=== PATIENT | female | born 1970 ===

== ENCOUNTER 2018-09-28 08:39 | Inpatient (IN) | payer BC ==
[2018-09-25 17:26] VITALS: BMI 24.7
[2018-09-28] MEDS ORDERED: MIDAZOLAM HCL 2 MG/2 ML SINGLE DOSE VIAL ONE (10:37)
[2018-09-28] MEDS ORDERED: PROPOFOL 20 ML ONE ×10 (10:37)
[2018-09-28] MEDS ORDERED: fentaNYL CITRATE 250 MCG/5 ML VIAL ONE (10:38)
[2018-09-28] MEDS ORDERED: SUCCINYLCHOLINE CHLORIDE 200 MG/10 ML VIAL ONE (10:41)
[2018-09-28] MEDS ORDERED: DEXAMETHASONE SOD PHOSPHATE 4 MG/1 ML VIAL ONE ×2 (10:42→12:43)
[2018-09-28] MEDS ORDERED: LIDOCAINE HCL/PF 2% SDV 5ML VIAL ONE (10:42)
[2018-09-28] MEDS ORDERED: ceFAZolin SODIUM 1 GM VIAL ONE ×2 (10:42)
[2018-09-28] MEDS ORDERED: DESFLURANE GAS 240 ML BOTTLE IH ONE (10:50)
[2018-09-28] MEDS ORDERED: ACETAMINOPHEN INJECTION 100 ML IVPB ONE (10:51)
[2018-09-28] MEDS ORDERED: HEPARIN NA (PORCINE) 5,000 UNITS/ML 1ML VIAL ONE (11:11)
[2018-09-28] MEDS ORDERED: SCOPOLAMINE HYDROBROMIDE 1 PATCH PATCH.TD72 ONE (11:22)
[2018-09-28] MEDS ORDERED: THROMBIN (BOVINE) 5,000 UNIT VIAL TP ONE ×2 (11:22→13:42)
[2018-09-28] MEDS ORDERED: ceFAZolin SODIUM 1 GM VIAL IVPB ONE (12:11)
[2018-09-28] MEDS ORDERED: VANCOMYCIN 1,000 MG VIAL (RESTRICTED TO ID ONLY) IVPB ONE (12:19)
[2018-09-28] MEDS ORDERED: HYDROmorphone HCl 2 MG/ML VIAL ONE (13:00)
--- NOTE | 2018-09-28 15:28 | PN ---
Progress Note (short form) - Note Progress Note: 48F s/p C4-C5 discectomies; C4, C5 partial corpectomies; C4-C5 anterior cervical decompression and instrumented fusion POD #0. -Admit to ICU x 24 hrs. for airway observation; OK to discharge home or downgrade to floor 09/29/2018 if airway stable. -Maintain head of bed 45-60 degrees. -Pain medication: per anaesthesia team; no HEEL DIPPER; NO NSAID's. -DVT PPx: -Mechanical only: MEGAN's, SCD's. -Post-op Ancef x 2 doses. -f/u AM labs. -Incentive spirometry. -PT/OT/Rehab, OOB. -WBAT B/L UE & LE. -d/c Rosenbaum catheter at midnight; f/u TOV (8 hours max). -Keep dressing clean & dry. -No heavy lifting, bending or twisting. -Advance diet as tolerated. -B/L UE & LE NV checks. -Care per ICU & primary medical hospitalist teams. -Discharge planning: f/u [facility] [place] office Friday10/09/2018; call for appointment; . Rolan Yap MD (Orthopaedic Surgery).
--- NOTE | 2018-09-28 15:33 | OP ---
Operative Note - Note: Operative Date: 09/28/18 Pre-Operative Diagnosis: 1. C4-C5 intervertebral disc disorder with associated: a. Myelopathy. b. Radiculopathy. 2. Cervical spinal stenosis with neurogenic claudication. 3. Kyphosis. 4. Segmental instability. 5. Disc- osteophyte complex C4-C5 Operation: 1. C4-C5 discectomy. 2. C4, C5 partial corpectomies. 3. C4-C5 anterior arthrodesis. 4. Insertion biomechanical device C4-C5. 5. C4-C5 anterior instrumentation. 6. Bone autograft. 7. Bone allograft. 8. Intra- operative fluoroscopy. 9. Intra-operative neural monitoring Post-Operative Diagnosis: Same as Pre-op Surgeon: Rolan Yap Rayon Tester: Ulises Yap Anesthesiologist/PURIFICATION OPERATOR HELPER: Jesse Warner Anesthesia: General Specimens Removed: C4-C5 disc Estimated Blood Loss (mls): 100 Fluid Volume Replaced (mls): 2,100 (Crystalloid) Operative Report Dictated: Yes
[2018-09-28] MEDS ORDERED: traMADol HCL 50 MG TABLET PO PRN (15:37)
[2018-09-28] MEDS ORDERED: oxyCODONE HCL 5 MG TABLET PO PRN (15:37)
[2018-09-28] MEDS ORDERED: ONDANSETRON 4 MG/2 ML VIAL IVPUSH PRN (15:37)
[2018-09-28] MEDS ORDERED: LACTATED RINGERS SOLUTION 1,000 ML IV SCH (15:45)
--- NOTE | 2018-09-28 16:11 | CONSULT ---
Consultation: REQUESTING PROVIDER: CONSULT REQUEST: We have been asked to medically evaluate this patient post- operatively HISTORY OF PRESENT ILLNESS: The patient is a 48F who presented for scheduled surgery. The patient is now s/ p C4-C5 discectomy, C4, C5 partial corpectomies, C4-C5 anterior arthrodesis, insertion of biomechanical device C4-C5, C4-C5 anterior instrumentation, bone autograft, bone allograft, and intra-operative fluoroscopy by Dr. Yap. REVIEW OF SYSTEMS: GENERAL/CONSTITUTIONAL: No fever or chills HEAD, EYES, EARS, NOSE AND THROAT: No change in vision. No ear pain or discharge CARDIOVASCULAR: No chest pain or shortness of breath RESPIRATORY: Denies cough, hemoptysis GASTROINTESTINAL: No nausea, vomiting GENITOURINARY: No dysuria, frequency, or change in urination MUSCULOSKELETAL: No joint or muscle swelling or pain SKIN: No rash NEUROLOGIC: No headache, vertigo, or acute change in strength/sensation ENDOCRINE: No increased thirst. No abnormal weight change HEMATOLOGIC/LYMPHATIC: No anemia, easy bleeding, or history of blood clots ALLERGIC/IMMUNOLOGIC: No hives or skin allergy PHYSICAL EXAMINATION Vital Signs - 24 hr 09/28/18 09/28/18 09:06 09:07 Temperature 98.6 F Pulse Rate 106 H Respiratory 18 Rate Blood Pressure 124/87 O2 Sat by Pulse 100 Oximetry (%) GENERAL: Awake, alert, and fully oriented, in no acute distress. HEAD: Normal with no signs of trauma. EYES: Pupils equal, round and reactive to light, extraocular movements intact, sclera anicteric, conjunctiva clear. EARS, NOSE, THROAT: Ears normal, nares patent, oropharynx clear without exudates. Moist mucous membranes. NECK: Surgical dressing in place LUNGS: Breath sounds equal, clear to auscultation bilaterally. No wheezes, and no crackles. No accessory muscle use. HEART: Regular rate and rhythm, normal S1 and S2 without murmur, rub or gallop. ABDOMEN: Soft, nontender, not distended, normoactive bowel sounds, no guarding, no rebound, no masses. No hepatomegaly or splenomegaly. MUSCULOSKELETAL: Normal range of motion at all joints. No bony deformities or tenderness. No CVA tenderness. UPPER EXTREMITIES: 2+ pulses, warm, well-perfused. No cyanosis. No clubbing. Cap refill <2 seconds. No peripheral edema. LOWER EXTREMITIES: 2+ pulses, warm, well-perfused. No peripheral edema. NEUROLOGICAL: Cranial nerves II-XII intact. Patient with decreased sensation to light touch on RUE/RLE which patient reports was presents before surgery. Strength 5/5 BUE/BLE Laboratory Results - last 24 hr 09/28/18 09/28/18 09/28/18 08:54 08:54 10:30 Serum , Qual Negative Blood Type O POSITIVE O POSITIVE Antibody Screen Negative Active Medications Generic Name Dose Route Start Last Admin Trade Name Freq PRN Reason Stop Dose Admin Acetaminophen 650 mg 09/28/18 15:45 Tylenol - PO Q6H KUMAR Lactated Ringer's 1,000 mls @ 100 mls/hr 09/28/18 15:45 Lactated Ringers Solution IV ASDIR KUMAR Ondansetron HCl 4 mg 09/28/18 15:37 Zofran Injection IVPUSH Q6H PRN NAUSEA AND/OR VOMITING Oxycodone HCl 5 mg 09/28/18 15:37 Roxicodone - PO Q4H PRN PAIN LEVEL 6-10 Oxycodone HCl 10 mg 09/28/18 15:37 Roxicodone - PO Q4H PRN PAIN LEVEL 7 - 10 Tramadol HCl 50 mg 09/28/18 15:37 Ultram - PO Q6H PRN PAIN LEVEL 1-5 ASSESSMENT/PLAN: The patient is a 48F s/p C4-C5 discectomies; C4, C5 partial corpectomies; C4-C5 anterior cervical decompression and instrumented fusion on 09/28/2018. S/p OR Per Surgery, admit to ICU x 24 hrs. for airway observation -Plan for discharge home or downgrade to floor 09/29/2018 if airway stable -Will maintain head of bed 45-60 degrees. -Keep dressing clean & dry -B/L UE & LE NV checks Neuro Acute post-operative pain -Per anaesthesia team; however per surgery no ELEVATORS INSPECTOR or NSAID's. Pulm IS GI Diet -Advance as tolerated -D/C jackson at midnight and void trial Heme DVT PPx: -Mechanical only: MEGAN's, SCD's. ID -Post-op Ancef x 2 doses. MSK -PT/OT/Rehab -WBAT B/L UE & LE. -No heavy lifting, bending or twisting Dispo -We will continue to follow the patient. Thank you for this consultative opportunity. -f/u [facility] [place] office Friday10/09/2018; call for appointment; . Visit type - Emergency Visit Emergency Visit: Yes ED Registration Date: 09/28/18 Care time: The patient presented to the Emergency Department on the above date and was hospitalized for further evaluation of their emergent condition. - New Patient This patient is new to me today: Yes Date on this admission: 09/28/18 - Critical Care Critical Care patient: Yes Total Critical Care Time (in minutes): 30 Critical Care Statement: The care of this patient involved high complexity decision making to prevent further life threatening deterioration of the patient 's condition and/or to evaluate & treat vital organ system(s) failure or risk of failure.
[2018-09-28] MEDS: ACETAMINOPHEN 325 MG TABLET (FP) PO SCH (16:52)
--- NOTE | 2018-09-28 19:44 | HP ---
CHIEF COMPLAINT: Scheduled cervical spine surgery with Dr. Yap HISTORY OF PRESENT ILLNESS: 48 year old female with a PMH significant for asthma presented to [facility] for scheduled cervical spine surgery with Dr. Yap. She had a fall on her face one year ago and has since had neck and back pain with numbness and tingling down both arms. MRI showed large disc prolapse at C4/C5. Procedure was without complications. Now admitted to ICU for post-op management, in stable condition. Recent Travel: No PAST MEDICAL HISTORY: Asthma PAST SURGICAL HISTORY: Tonsillectomy Exploratory laparotomy Ectopic Social History: Has a teenage daughter Smoking: Never smoker Alcohol: Social Drugs: Marijuana occasionally Family History: DM, HTN, asthma Allergies No Known Allergies Allergy (Verified 09/25/18 17:26) HOME MEDICATIONS: Home Medications Medication Instructions Recorded Ibuprofen/Diphenhydramine Cit 1 - 2 each PO HS 09/25/18 [Advil Pm Caplet] REVIEW OF SYSTEMS CONSTITUTIONAL: (+)generalized weakness Absent: fever, chills, diaphoresis, malaise, loss of appetite, weight change HEENT: (+) throat pain Absent: rhinorrhea, nasal congestion, throat swelling, difficulty swallowing, mouth swelling, ear pain, eye pain, visual changes CARDIOVASCULAR: Absent: chest pain, syncope, palpitations, irregular heart rate, lightheadedness , peripheral edema RESPIRATORY: Absent: cough, shortness of breath, dyspnea with exertion, orthopnea, wheezing, stridor, hemoptysis GASTROINTESTINAL: Absent: abdominal pain, abdominal distension, nausea, vomiting, diarrhea, constipation, melena, hematochezia GENITOURINARY: Absent: dysuria, frequency, urgency, hesitancy, hematuria, flank pain, genital pain MUSCULOSKELETAL: Absent: myalgia, arthralgia, joint swelling, back pain, neck pain SKIN: Absent: rash, itching, pallor HEMATOLOGIC/IMMUNOLOGIC: Absent: easy bleeding, easy bruising, lymphadenopathy, frequent infections ENDOCRINE: Absent: unexplained weight gain, unexplained weight loss, heat intolerance, cold intolerance NEUROLOGIC: (+) numbness to right fingers and right leg Absent: headache, focal weakness or paresthesias, dizziness, unsteady gait, seizure, mental status changes, bladder or bowel incontinence PSYCHIATRIC: Absent: anxiety, depression, suicidal or homicidal ideation, hallucinations. PHYSICAL EXAMINATION Vital Signs - 24 hr 09/28/18 09/28/18 09/28/18 09:06 09:07 15:30 Temperature 98.6 F 99.0 F Pulse Rate 106 H 90 Respiratory 18 12 Rate Blood Pressure 124/87 144/94 O2 Sat by Pulse 100 96 Oximetry (%) 09/28/18 09/28/18 09/28/18 15:45 16:00 16:15 Temperature 99.3 F 99.4 F 99.0 F Pulse Rate 109 H 109 H 90 Respiratory 11 12 12 Rate Blood Pressure 153/98 138/91 144/94 O2 Sat by Pulse 96 96 96 Oximetry (%) 09/28/18 09/28/18 09/28/18 16:30 16:45 17:15 Temperature 99.1 F 99.1 F 98.9 F Pulse Rate 88 95 H 85 Respiratory 12 12 20 Rate Blood Pressure 154/97 147/97 152/92 O2 Sat by Pulse 96 96 96 Oximetry (%) 09/28/18 09/28/18 09/28/18 17:45 18:00 18:15 Temperature 99.0 F 99.0 F 98.8 F Pulse Rate 95 H 101 H 101 H Respiratory 20 20 20 Rate Blood Pressure 153/96 151/98 132/73 O2 Sat by Pulse 96 Oximetry (%) 09/28/18 18:45 Temperature 98.8 F Pulse Rate 101 H Respiratory 20 Rate Blood Pressure 136/95 O2 Sat by Pulse Oximetry (%) GENERAL: Awake, appears weak, fully oriented, in no acute distress. HEAD: Normal with no signs of trauma. EYES: Pupils equal, round and reactive to light, extraocular movements intact, sclera anicteric, conjunctiva clear. No lid lag. EARS, NOSE, THROAT: nares patent, oropharynx clear without exudates. Moist mucous membranes. NECK: DPD to anterior neck CDI, no surrounding erythema, edema or drainage. Normal range of motion, supple without lymphadenopathy, JVD, or masses. LUNGS: Breath sounds equal, clear to auscultation bilaterally. No wheezes, and no crackles. No accessory muscle use. HEART: Regular rate and rhythm, normal S1 and S2 without murmur, rub or gallop. ABDOMEN: Soft, nontender, not distended, normoactive bowel sounds, no guarding, no rebound, no masses. No hepatomegaly or splenomegaly. MUSCULOSKELETAL: Normal range of motion at all joints. No bony deformities or tenderness. No CVA tenderness. UPPER EXTREMITIES: 2+ pulses, warm, well-perfused. No cyanosis. No clubbing. No peripheral edema. LOWER EXTREMITIES: +SCDs, 2+ pulses, warm, well-perfused. No calf tenderness. No peripheral edema. NEUROLOGICAL: No facial droop, tongue midline, normal speech. 5/5 strength to all 4 extremities, decreased sensation to touch to RLE PSYCHIATRIC: Cooperative. Good eye contact. Appropriate mood and affect. SKIN: Warm, dry, normal turgor, no rashes or lesions noted, normal capillary refill. Laboratory Results - last 24 hr 09/28/18 09/28/18 09/28/18 08:54 08:54 10:30 Serum , Qual Negative Blood Type O POSITIVE O POSITIVE Antibody Screen Negative ASSESSMENT/PLAN: 48 year old female with a PMH significant for asthma presented to [facility] for scheduled cervical spine surgery with Dr. Yap. Now admitted to ICU for post- op management. S/p C4-C5 discectomy, C4, C5 partial corpectomies, C4-C5 anterior arthrodesis, insertion of biomechanical device C4-C5, C4-C5 anterior instrumentation, bone autograft, bone allograft, and intra-operative fluoroscopy - POD #0 - Admitted to ICU 24 hrs post op - Ancef x 2 given - HOB 45 - 60 degrees - PT - D/c Rosenbaum catheter at midnight -F/u TOV - 8 hrs max - Pain management: - Apap, Tramadol 50 mg, Oxycodone 5 mg and 10 mg PRN - No NSAIDs - [facility] office Friday10/09/2018; call for appointment; . Prophylaxis - DVT: SCDs FEN - LR @ 100 cc/hr - Replete as needed - Soft diet Disp: Patient may be transferred to [facility] floor if condition stable by tomorrow at 3:00 PM Visit type - Emergency Visit Emergency Visit: No - New Patient This patient is new to me today: Yes Date on this admission: 09/28/18 - Critical Care Critical Care patient: Yes Total Critical Care Time (in minutes): 20
[2018-09-28] MEDS: CEFAZOLIN 1 GM/D5W 1 GM/50 ML BAG IVPB SCH (22:20)
[2018-09-29] MEDS: oxyCODONE HCL 5 MG TABLET PO PRN (02:51)
--- NOTE | 2018-09-29 06:03 | PN ---
Physical Exam: SUBJECTIVE: Patient seen and examined. The patient endorses neck soreness and R ptosis. Patient otherwise denies pain or new symptoms. She has not ambulated or gotten out of bed yet. Tolerating liquids well. OBJECTIVE: Vital Signs Period Temp Pulse Resp BP Sys/Wright Pulse Ox Last 24 Hr 98.2 F-99.4 F 70-112 11-20 124-154/70-99 96-100 GENERAL: Awake, alert, and fully oriented, in no acute distress. HEAD: Normal with no signs of trauma. EYES: Pupils equal, round and reactive to light, extraocular movements intact, sclera anicteric, conjunctiva clear. EARS, NOSE, THROAT: Ears normal, nares patent, oropharynx clear without exudates. Moist mucous membranes. NECK: Surgical dressing in place, C/D/I LUNGS: Breath sounds equal, clear to auscultation bilaterally. No wheezes, and no crackles. No accessory muscle use. HEART: Regular rate and rhythm, normal S1 and S2 without murmur, rub or gallop. ABDOMEN: Soft, nontender, not distended, normoactive bowel sounds, no guarding, no rebound, no masses. No hepatomegaly or splenomegaly. MUSCULOSKELETAL: Normal range of motion at all joints. No bony deformities or tenderness. No CVA tenderness. UPPER EXTREMITIES: 2+ pulses, warm, well-perfused. No cyanosis. No clubbing. Cap refill <2 seconds. No peripheral edema. LOWER EXTREMITIES: 2+ pulses, warm, well-perfused. No peripheral edema. NEUROLOGICAL: Cranial nerves II-XII intact. Patient with decreased sensation to light touch on RUE/RLE which patient reports was presents before surgery. Strength 5/5 BUE/BLE Laboratory Results - last 24 hr 09/28/18 09/28/18 09/28/18 08:54 08:54 10:30 Serum , Qual Negative Blood Type O POSITIVE O POSITIVE Antibody Screen Negative Active Medications Generic Name Dose Route Start Last Admin Trade Name Freq PRN Reason Stop Dose Admin Acetaminophen 650 mg 09/28/18 16:45 09/28/18 16:52 Tylenol - PO 650 mg Q6HPO KUMAR Administration Lactated Ringer's 1,000 mls @ 100 mls/hr 09/28/18 15:45 09/28/18 16:49 Lactated Ringers Solution IV 100 mls/hr ASDIR KUMAR Administration Cefazolin Sodium 1 gm in 50 mls @ 100 mls/hr 09/28/18 22:00 09/28/18 22:20 Ancef 1 Gm Premixed Ivpb - IVPB 09/29/18 06:29 100 mls/hr Q8H KUMAR Administration Ondansetron HCl 4 mg 09/28/18 15:37 Zofran Injection IVPUSH Q6H PRN NAUSEA AND/OR VOMITING Oxycodone HCl 5 mg 09/28/18 15:37 09/28/18 22:20 Roxicodone - PO 5 mg Q4H PRN Administration PAIN LEVEL 6-10 Oxycodone HCl 10 mg 09/28/18 15:37 09/29/18 02:51 Roxicodone - PO 10 mg Q4H PRN Administration PAIN LEVEL 7 - 10 Tramadol HCl 50 mg 09/28/18 15:37 Ultram - PO Q6H PRN PAIN LEVEL 1-5 ASSESSMENT/PLAN: The patient is a 48F s/p C4-C5 discectomies; C4, C5 partial corpectomies; C4-C5 anterior cervical decompression and instrumented fusion on 09/28/2018. S/p OR Per Surgery, admit to ICU x 24 hrs. for airway observation -Plan for discharge home or downgrade to floor today -Will maintain head of bed 45-60 degrees. -Keep dressing clean & dry -B/L UE & LE NV checks Neuro Acute post-operative pain -Tylenol, Oxy 5 & 10, Tramadol PRN for pain --Patient taking Tylenol and refusing other PRNs Pulm Continue IS for volume expansion GI Diet (Reg) -Advance as tolerated -K 3.3, repleted Heme DVT PPx: -Mechanical only: MEGAN's, SCD's. ID -Post-op Ancef x 2 doses completed MSK -PT/OT/Rehab (PT consulted) -WBAT B/L UE & LE. -No heavy lifting, bending or twisting --Pt in chair for rounds Dispo -Patient no longer requires ICU level of care, plan to transfer to floor today -f/u [facility] [place] office Friday10/09/2018; call for appointment; . Visit type - Emergency Visit Emergency Visit: Yes ED Registration Date: 09/28/18 Care time: The patient presented to the Emergency Department on the above date and was hospitalized for further evaluation of their emergent condition. - New Patient This patient is new to me today: No - Critical Care Critical Care patient: Yes Total Critical Care Time (in minutes): 30 Critical Care Statement: The care of this patient involved high complexity decision making to prevent further life threatening deterioration of the patient 's condition and/or to evaluate & treat vital organ system(s) failure or risk of failure.
[2018-09-29] MEDS: ACETAMINOPHEN 325 MG TABLET (FP) PO SCH ×4 (06:09→17:35)
[2018-09-29] MEDS: CEFAZOLIN 1 GM/D5W 1 GM/50 ML BAG IVPB SCH (06:12)
[2018-09-29 06:22] LABS: HEMATOCRIT 35.7 % (32.4-45.2); HEMOGLOBIN 11.9 GM/dL (10.7-15.3); MCHC 33.2 g/dl (32.0-36.0); MEAN CELL VOLUME 102.5 fl (80-96); MEAN PLT VOLUME 8.6 fl (7.5-11.1); PLATELET COUNT 161 K/MM3 (134-434); RBC 3.49 M/mm3 (3.60-5.2); RDW 14.8 % (11.6-15.6); WHITE BLOOD COUNT 7.6 K/mm3 (4.0-10.0)
[2018-09-29 06:55] LABS: ANION GAP 9 MMOL/L (8-16); BLOOD UREA NITROGEN 8 mg/dL (7-18); CALCIUM 8.5 mg/dL (8.5-10.1); CHLORIDE 98 mmol/L (98-107); CO2 29 mmol/L (21-32); CREATININE 0.6 mg/dL (0.55-1.3); GLUCOSE,RANDOM 123 mg/dL (74-106); POTASSIUM 3.3 mmol/L (3.5-5.1); SODIUM 135 mmol/L (136-145)
[2018-09-29] MEDS ORDERED: MAGNESIUM SULF 50% (8.12 MEQ/2 ML-1 GM VIAL) IVPB ONE (08:51)
--- NOTE | 2018-09-29 11:36 | PN ---
Progress Note (short form) - Note Progress Note: Post op day#1.S/P C4-C5 ACDF under GA uneventful.P102,BP 143/96 and Spo2 98 on RA.Patient stable and c/o pain score of 10/10 while sitting in chair looking quite comfortable having conversation with me and RN in the room.She also c/o some swelling and of right eye with blurry vision which is better today as compared to yesterday.I amd not convinced about her pain score which is is out of proportion to her clinical presentation.She may have some pain for hich she is on oxycodoe.The RN also agrees with this finding.So will have surgeon evaluate the patient and if needed will start GENERATION ENGINEERING TECHNOLOGIST.Will f/u tomorrow.
--- NOTE | 2018-09-29 12:02 | OP ---
DATE OF OPERATION: 09/28/2018 SURGEON: Rolan Yap MD ADMINISTRATIVE SUPPORT ASSISTANT: Ulises Yap MD PREOPERATIVE DIAGNOSIS: 1. 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 B. Radiculopathy. 2. Cervical spinal stenosis with neurogenic claudication. 3. Cervical kyphosis. 4. Segmental instability. 5. Disk osteophyte complex C4-C5. POSTOPERATIVE DIAGNOSIS: 1. 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 B. Radiculopathy. 2. Cervical spinal stenosis with neurogenic claudication. 3. Cervical kyphosis. 4. Segmental instability. 5. Disk osteophyte complex C4-C5. SURGICAL PROCEDURE: 1. C4-C5 discectomy. 2. C4, C5 partial corpectomies. 3. C4-C5 anterior arthrodesis. 4. Insertion of biomechanical device C4-C5. 5. C4-C5 anterior instrumentation. 6. Bone autograft. 7. Bone allograft. 8. Intraoperative biplanar fluoroscopy. 9. Intraoperative neural monitoring. ANESTHESIA: General endotracheal tube anesthesia. POSITION: Supine. INCISION: Right oblique anterior at level of cricothyroid interval. ESTIMATED BLOOD LOSS: 100cc. INTRAVENOUS FLUID: Crystalloid, 2100 mL. SPECIMENS: C4-C5 disc. DRAINS: None. COMPLICATIONS: None. URINE OUTPUT: See anesthesia record. BACTERIOLOGY: None. CLOSURE: 2-0 Vicryl and 3-0 Biosyn absorbable suture. INDICATIONS: The patient is a 48-year-old female who was indicated for anterior cervical decompression and instrumented fusion to prevent the progression of already worsening neurological decline. The patient was identified in the holding area by her arm band. A long discussion was held with the patient regarding the risks, benefits, and alternatives of the above-named procedure. The risks include, but are not limited to: Pain, bleeding, infection, damage to surrounding structures (including nerves, blood vessels, skin, ligaments, tendons, and bone), dysphagia, dysphonia, nerve palsy, wound complications, pseudarthrosis, failure of fusion, failure of hardware/implants/reduction, need for further surgery, blood clots, myocardial infarction, pulmonary embolism, cerebrovascular event, anesthesia complications, neurological injury, loss of function, and . Benefits as mentioned above. Alternatives include no surgery. All questions were answered. The patient understood and agreed to the procedure. Informed consent was obtained, witnessed, and verified. The patient was taken to the operating room after being seen by the anesthesia and nursing staff. PROCEDURE: The patient was brought into the operating room, placed on the OR table and secured with a safety strap. Consent and the operative site was again verified with the patient and nursing and anesthesia staff. Anesthesia was then administered without complications including 2 g of IV Ancef, 1 g of IV vancomycin, and 1 g of TXA. A time-out was then done led by , the attending surgeon. The patient was positioned in the supine position with arms tucked and placed under gentle traction using tape over her shoulders. All bony prominences were very well padded. A bump was placed beneath the scapulae to facilitate extension of the patients neck. The cricothyroid interval was palpated, and a deep neck crease in the lines of Cecy at this level was targeted for incision. A C-arm fluoroscopy unit was positioned perpendicularly to the table and maintained at the level of the head, except when needed. Intra-operative neural monitoring revealed no change between pre- and post- positional SSEP & MEP baseline readings. The operative site was then prepped and draped in the standard sterile fashion using betadine prep and scrub, wiped off with alcohol, and Duraprep applied. Pre-operative imaging was available for intra-operative evaluation. Time-out was again done, and the case began. An oblique anterior incision was made on the right side of the patients neck in the lines of Cecy in standard fashion. Dissection was carried through the investing layer of fascia and finger palpation was used to create a plane lateral to the strap muscles between the carotid sheath and the viscera. Next, the esophagus and trachea were visualized as was the carotid sheath. Hand-held retractors were used to retract these structures safely out of the way, allowing direct access to the anterior cervical spine. The prevertebral fascia overlying the anterior cervical spine was then split using peanut swabs. An 18-gauge spinal needle was bent and used to localize the C4-C5 disc space under fluoroscopy. This helped us target the indicated surgical level. Next, the medial borders of the Longus Coli musculature were gently released over the anterolateral borders of the vertebral bodies and disc spaces using monopolar electrocautery. A self-retaining retractor system was used with the teeth of the blades retracting the belly of the longus coli muscles, and with the retractors themselves safely retracting the carotid sheath laterally and viscera medially. Due to extensive osteophyte formation, identifying the anterior C5 vertebral body was challenging. As a result, one 12mm [place] pin was then placed into the center of the vertebral body of C4 another into the superior aspect of the C6 vertebral body. The [place] pin placement was confirmed via fluorscopy. We decided to not to replace the caudal [place] pin. A [place] pin distractor system was applied with no distraction at this stage. Additionally, the distractor barrels served as superior and inferior soft tissue retractors. The microscope was then introduced. The anterior osteophyte overlying the C4- C5 interspace was resected using a rongeur. Using monopolar electrocautery, the annulus of the C4-C5 disc was incised. The disc was morselized using a curette and excised using a pituitary rongeur. Next, a 40mm rough mane-tipped chelsie was used to perform partial corpectomies of the caudal C4 vertebral body and the cephalad C5 vertebral body. The resection of most remaining bone, and the posterior longitudinal ligament (PLL) , was achieved utilizing [place] rongeur upcuts. A small, angled, ball-tipped probe was utilized to ensure that all PLL complex was free from adhesion to the theca prior to excision. There was no evidence of OPLL. The ball-tipped probe was also used to ensure that the bilateral C4-C5 neuroforaminae were patent. Our decompression of the cervical spine was successfully achieved. At this point, gentle distraction was applied to the [place] pin distractor. Next, trial implants were placed into the defect space and a size 8 RTI Fortilink cage was then selected to fit the distracted space. The cage was filled with a combination of autologous bone shavings and demineralized bone matrix putty. The cage was then gently tapped into position. This completed the anterior arthrodesis. [place] pin distraction was released, allowing ligamentotaxis to provide a snug interference fit of the cage. This was ensured by using a cage-rehman. A 12- mm plate was utilized with 2 proximal and 2 distal screws measuring 12 mm to provide solid fixation. This, too, was demonstrated with a plate-rehman once all instrumentation was satisfactorily seated. The screws were then locked using the plate-screw locking mechanism. Fluoroscopic images in the AP and lateral plane showed implants to be in good position and with good overall alignment of the cervical spine. Copious irrigation was performed, hemostasis was assured, and the wound was closed primarily using 2-0 Vicryl and 3-0 Biosyn sutures. A sterile compressive dressing was applied. Sponge and needle counts were correct at the end of the case, and I, the attending surgeon, was present and scrubbed throughout the case. The patient was then extubated by the anesthesia staff without incident or complications and was then transferred to the recovery room in stable condition having tolerated the procedure well. OVERALL COMMENTS: Difficult dissection, but overall the case went well. MEP & SSEP signals were stable to baseline at the end of the case. MD JEEVAN Hernández/[id number] MTDD
--- NOTE | 2018-09-29 12:11 | PN ---
Teaching Attending Note Name of Resident: Yogesh García ATTENDING PHYSICIAN STATEMENT I saw and evaluated the patient. I reviewed the resident's note and discussed the case with the resident. I agree with the resident's findings and plan as documented. SUBJECTIVE: Pt seen and examined in the ICU. c/o throat soreness. Also reports she is unable to open her eyes wide. OBJECTIVE: Vital Signs Period Temp Pulse Resp BP Sys/Wright Pulse Ox Last 24 Hr 98.2 F-99.5 F 70-112 11-20 127-158/70-99 96-96 Intake & Output 09/26/18 09/27/18 09/28/18 09/29/18 23:59 23:59 23:59 23:59 Intake Total 2750 1400 Output Total 365 1000 Balance 2385 400 Weight 63.503 kg Gen: NAD at rest Heart: RRR Lung: decreased breath sounds at the bases Abd: soft, nontender Ext: no edema Neuro: nonfocal CBC, BMP 09/29/18 05:15 09/29/18 05:15 Active Medications Acetaminophen (Tylenol -) 650 mg PO Q6HPO KUMAR Last Admin: 09/29/18 06:09 Dose: 650 mg Lactated Ringer's (Lactated Ringers Solution) 1,000 mls @ 100 mls/hr IV ASDIR KUMAR Last Admin: 09/28/18 16:49 Dose: 100 mls/hr Ondansetron HCl (Zofran Injection) 4 mg IVPUSH Q6H PRN PRN Reason: NAUSEA AND/OR VOMITING Oxycodone HCl (Roxicodone -) 5 mg PO Q4H PRN PRN Reason: PAIN LEVEL 6-10 Last Admin: 09/28/18 22:20 Dose: 5 mg Oxycodone HCl (Roxicodone -) 10 mg PO Q4H PRN PRN Reason: PAIN LEVEL 7 - 10 Last Admin: 09/29/18 02:51 Dose: 10 mg Potassium Chloride (K-Dur -) 80 meq PO ONCE ONE Stop: 09/29/18 09:04 Tramadol HCl (Ultram -) 50 mg PO Q6H PRN PRN Reason: PAIN LEVEL 1-5 ASSESSMENT AND PLAN: Cervical Spinal Stenosis with Neurogenic Claudication s/p C4-C5 Discectomy/Anterior Instrumentation/Insertion Biomechanical Device Asthma - pain control - incentive spirometry - replete lytes - PO as tolerated - DVT prophylaxis - can monitor on floor
--- NOTE | 2018-09-29 12:23 | PN ---
Progress Note (short form) - Note Progress Note: SUBJECTIVE Patient complains of ongoing pain 9-10/10 in neck with drooping of R upper eyelid and blurring of vision. Complains also of numbness/tingling of arms and legs. No headache/nausea/vomiting. No bladder/bowel dysfunction. Tolerating po intake. Passing gas. OBJECTIVE T 99.5, HR 114 Last Vital Signs Temp Pulse Resp BP Pulse Ox 98.8 F 103 H 17 120/92 96 09/29/18 12:00 09/29/18 12:00 09/29/18 12:00 09/29/18 12:00 09/29/18 08:00 HEENT - Dressing in place on neck -dry. No pharyngeal erythema/exudate. R sided Ptosis/supraorbital puffiness. Neuro - AAO x 3. Tone/Power normal all extremities. GERARDO. Reports blurry vision both eyes. Lungs - clear to auscultation. No crackles/wheeze. Heart - S1, S2, RRR Abdomen - soft, non-tender. Bowel Sounds normal. Extremities - no calf tenderness Laboratory Results - last 24 hr 09/28/18 09/29/18 09/29/18 10:30 05:15 05:15 WBC 7.6 RBC 3.49 L Hgb 11.9 Hct 35.7 MCV 102.5 H MCH 34.0 H MCHC 33.2 RDW 14.8 Plt Count 161 MPV 8.6 Sodium 135 L Potassium 3.3 L Chloride 98 Carbon Dioxide 29 Anion Gap 9 BUN 8 Creatinine 0.6 Creat Clearance w eGFR > 60 Random Glucose 123 H Calcium 8.5 Blood Type O POSITIVE Current Medications Generic Name Dose Route Start Last Admin Trade Name Freq PRN Reason Stop Dose Admin Acetaminophen 650 mg 09/28/18 16:45 09/29/18 12:23 Tylenol - PO 650 mg Q6HPO KUMAR Administration Lactated Ringer's 1,000 mls @ 100 mls/hr 09/28/18 15:45 09/28/18 16:49 Lactated Ringers Solution IV 100 mls/hr ASDIR KUMAR Administration Ondansetron HCl 4 mg 09/28/18 15:37 Zofran Injection IVPUSH Q6H PRN NAUSEA AND/OR VOMITING Oxycodone HCl 5 mg 09/28/18 15:37 09/28/18 22:20 Roxicodone - PO 5 mg Q4H PRN Administration PAIN LEVEL 6-10 Oxycodone HCl 10 mg 09/28/18 15:37 09/29/18 02:51 Roxicodone - PO 10 mg Q4H PRN Administration PAIN LEVEL 7 - 10 Potassium Chloride 80 meq 09/29/18 09:03 K-Dur - PO 09/29/18 09:04 ONCE ONE Tramadol HCl 50 mg 09/28/18 15:37 Ultram - PO Q6H PRN PAIN LEVEL 1-5 ASSESSMENT/PLAN 48 year old female with history of Asthma admitted to [facility] for elective cervical spine surgery with Dr. 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 She was admitted to the ICU post- operatively after an uneventful surgical course. Currently she reports R upper eyelid drooping and blurry vision, as well as uncontrolled pain and some tingling of extremities. 1. S/p C4-C5 discectomy, C4, C5 partial corpectomies, C4-C5 anterior arthrodesis , insertion of biomechanical device C4-C5, C4-C5 anterior instrumentation, bone autograft, bone allograft, and intra-operative fluoroscopy for C4-C5 intervertebral disc disorder with associated Myelopathy and Radiculopathy, as well as Cervical spinal stenosis with neurogenic claudication POD 1 Pain appears disproportionate to what is expected. On Oxycodone prn. Dr. Yap aware of pain and associated neurological complaints. Mobilizing to chair. On discharge, for follow up [facility] [place] office Friday10/09/2018; call for appointment; . Post-op Surgery Instructions - Keep dressing clean & dry. No heavy lifting, bending or twisting. 2. R Ptosis/R supra-orbital edema and Blurring of vision - possibly mechanical as a result of positioning during surgery. Will do CT Head and consult Neurology on recommendation of Dr. Yap. 3. Hypokalemia - repleted. PT Incentive Spirometry DVT Px - SCDs Visit type - Emergency Visit Emergency Visit: No - New Patient This patient is new to me today: Yes Date on this admission: 09/29/18 - Critical Care Critical Care patient: No - Discharge Referral Referred to [facility] Med P.C.: No
[2018-09-29] MEDS: POTASSIUM CHLORIDE TABS 20 MEQ TABLET.ER (FP) PO SCH ×2 (13:45→17:35)
[2018-09-30] MEDS: ACETAMINOPHEN 325 MG TABLET (FP) PO SCH ×5 (00:41→23:40)
[2018-09-30] MEDS: oxyCODONE HCL 5 MG TABLET PO PRN (06:18)
[2018-09-30] MEDS ORDERED: POTASSIUM CHLORIDE TABS 20 MEQ TABLET.ER (FP) PO ONE ×2 (08:33→12:07)
--- NOTE | 2018-09-30 08:38 | PN ---
Progress Note (short form) - Note Progress Note: Anesthesia Pain Pt seen and examined S:Alert and awake comfortable right eye blurred O: Vital Signs Temperature 98.4 F 09/30/18 06:00 Pulse Rate 98 H 09/30/18 08:10 Respiratory Rate 18 09/30/18 08:10 Blood Pressure 143/91 09/30/18 06:00 O2 Sat by Pulse Oximetry (%) 96 09/30/18 08:10 CBC, BMP 09/29/18 05:15 09/29/18 05:15 a/p:s/p ACDF c4-c5 Right eye still blurred pupils reactive to light Dr Yap in the room Continue to observe the eye Tien Corona MD
--- NOTE | 2018-09-30 09:19 | PN ---
Physical Exam: SUBJECTIVE: Patient seen and examined at bedside. Some coughing overnight that exacerbated pain. No new complaints. Denies CP,VILLALOBOS, SOB, palpitations, abdominal pain, nausea or vomiting. OBJECTIVE: Vital Signs Period Temp Pulse Resp BP Sys/Wright Pulse Ox Last 24 Hr 98.1 F-99.3 F 72-103 12-18 109-155/57-96 96-96 GENERAL: AAOx3, NAD EYES: PERRL, EOMI, sclera anicteric, conjunctiva clear. No ptosis. ENT: moist mucous membranes. NECK: supple, anterior neck bandage appear C/D/I LUNGS:CTAB, no wheezes, no crackles, no accessory muscle use. HEART: RRR, S1, S2 without murmur, rub or gallop. ABDOMEN: Soft, NDNT, normoactive bowel sounds, no guarding, no rebound, no hepatosplenomegaly, no masses. EXTREMITIES: 2+ pulses, warm, well-perfused, no edema. NEUROLOGICAL: Cranial nerves II through XII grossly intact. Normal speech, gait not observed. PSYCH: Normal mood, normal affect. SKIN: Warm, dry, normal turgor, no rashes or lesions noted Active Medications Generic Name Dose Route Start Last Admin Trade Name Freq PRN Reason Stop Dose Admin Acetaminophen 650 mg 09/28/18 16:45 09/30/18 06:18 Tylenol - PO 650 mg Q6HPO KUMAR Administration Ondansetron HCl 4 mg 09/28/18 15:37 Zofran Injection IVPUSH Q6H PRN NAUSEA AND/OR VOMITING Oxycodone HCl 5 mg 09/28/18 15:37 09/28/18 22:20 Roxicodone - PO 5 mg Q4H PRN Administration PAIN LEVEL 6-10 Oxycodone HCl 10 mg 09/28/18 15:37 09/30/18 06:18 Roxicodone - PO 10 mg Q4H PRN Administration PAIN LEVEL 7 - 10 Tramadol HCl 50 mg 09/28/18 15:37 Ultram - PO Q6H PRN PAIN LEVEL 1-5 ASSESSMENT/PLAN: The patient is a 48F s/p C4-C5 discectomies; C4, C5 partial corpectomies; C4-C5 anterior cervical decompression and instrumented fusion on 09/28/2018. POD#2 * Per Surgery, admit to ICU x 24 hrs. for airway observation * Plan for discharge home or downgrade to floor today * Will maintain head of bed 45-60 degrees. * Keep dressing clean & dry * B/L UE & LE NV checks Neuro * Acute post-operative pain * Tylenol, Oxy 5 & 10, Tramadol PRN for pain * Patient taking Tylenol and refusing other PRNs Pulm * Continue IS for volume expansion GI * Diet (Reg) * Advance as tolerated * K 3.3, repleted Heme * DVT PPx: * Mechanical only: MEGAN's, SCD's. ID * Post-op Ancef x 2 doses completed MSK * PT/OT/Rehab (PT consulted) * WBAT B/L UE & LE. * No heavy lifting, bending or twisting * Pt in chair for rounds Dispo * Patient no longer requires ICU level of care, plan to transfer to floor today * f/u [facility] [place] office Friday10/09/2018; call for appointment;( [phone]. Problem List - Problems (1) Cervical disc disorder at C4-C5 level with myelopathy Visit type - Emergency Visit Emergency Visit: Yes ED Registration Date: 09/28/18 Care time: The patient presented to the Emergency Department on the above date and was hospitalized for further evaluation of their emergent condition. - New Patient This patient is new to me today: Yes Date on this admission: 09/30/18 - Critical Care Critical Care patient: Yes Total Critical Care Time (in minutes): 42 Critical Care Statement: The care of this patient involved high complexity decision making to prevent further life threatening deterioration of the patient 's condition and/or to evaluate & treat vital organ system(s) failure or risk of failure.
--- NOTE | 2018-09-30 09:54 | CON.NEURO ---
Consult - History of Present Illness History of Present Illness: 48 year old female with a PMH significant for asthma presented to [facility] for scheduled cervical spine surgery with Dr. Yap on 09/28/18 . POD #2. She had a fall on her face one year ago and has since had neck and back pain with numbness and tingling down both arms. MRI showed large disc prolapse at C4/C5. Procedure was without complications. Now admitted to ICU for post-op management , in stable condition. Neuro called for right eye droop swelling and numbness of hands and feet ; CT HD (-) - Past Medical History ...LMP Comment: december 2017 - Alcohol/Substance Use Hx Alcohol Use: Yes (drink/day) - Smoking History Smoking history: Former smoker Have you smoked in the past 12 months: No If you are a former smoker, when did you quit?: 15 yrs ago Home Medications - Allergies Allergies/Adverse Reactions: Allergies Allergy/AdvReac Type Severity Reaction Status Date / Time No Known Allergies Allergy Verified 09/25/18 17:26 - Home Medications Home Medications: Ambulatory Orders Ibuprofen/Diphenhydramine Cit [Advil Pm Caplet] 1 - 2 each PO HS 09/25/18 Physical Exam-Neuro Vital Signs: Vital Signs Temperature 98.4 F 09/30/18 06:00 Pulse Rate 98 H 09/30/18 08:10 Respiratory Rate 18 09/30/18 08:10 Blood Pressure 143/91 09/30/18 06:00 O2 Sat by Pulse Oximetry (%) 96 09/30/18 08:10 Labs: CBC, BMP 09/29/18 05:15 - Neuro Exam Level Of Consciousness: Yes: Alert, Oriented to Person (R ptosis , r pupils asymetric miotic 1.5mm, no facial, no focal weakness ) Imaging - Results Cat Scan: Report Reviewed, Image Reviewed Problem List - Problems (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 Yap on 09/28/18 . POD #2. She had a fall on her face one year ago and has since had neck and back pain with numbness and tingling down both arms. MRI showed large disc prolapse at C4/C5. Procedure was without complications. Now admitted to ICU for post-op management , in stable condition. Neuro called for right eye droop swelling and numbness of hands and feet ; CT HD (-) R Horners Syndrome -- unable to assess if pre or post ganglionic (requires optho cocaine drops etc) ? related to C spine manipulation vs neck carotid manipulation vs brainstem - doubt stroke given no other findings can call OPTHO, check MRI /MRA head and NECK DR MOORE
--- NOTE | 2018-09-30 11:52 | PN ---
Teaching Attending Note Name of Resident: Orlando Roper ATTENDING PHYSICIAN STATEMENT I saw and evaluated the patient. I reviewed the resident's note and discussed the case with the resident. I agree with the resident's findings and plan as documented. SUBJECTIVE: Pt seen and examined in the ICU. Pain relatively controlled. Tolerating PO. Still reports right lid lag. OBJECTIVE: Vital Signs Period Temp Pulse Resp BP Sys/Wright Pulse Ox Last 24 Hr 98.1 F-99.3 F 72-103 12-18 109-155/57-93 96-96 Intake & Output 09/27/18 09/28/18 09/29/18 09/30/18 23:59 23:59 23:59 23:59 Intake Total 2750 2890 140 Output Total 365 1300 Balance 2385 1590 140 Weight 63.503 kg Gen: NAD at rest Heart: RRR Lung: decreased breath sounds at the bases Abd: soft, nontender Ext: no edema CBC, BMP 09/29/18 05:15 09/30/18 09:08 Active Medications Acetaminophen (Tylenol -) 650 mg PO Q6HPO KUMAR Last Admin: 09/30/18 06:18 Dose: 650 mg Ondansetron HCl (Zofran Injection) 4 mg IVPUSH Q6H PRN PRN Reason: NAUSEA AND/OR VOMITING Oxycodone HCl (Roxicodone -) 5 mg PO Q4H PRN PRN Reason: PAIN LEVEL 6-10 Last Admin: 09/28/18 22:20 Dose: 5 mg Oxycodone HCl (Roxicodone -) 10 mg PO Q4H PRN PRN Reason: PAIN LEVEL 7 - 10 Last Admin: 09/30/18 06:18 Dose: 10 mg Tramadol HCl (Ultram -) 50 mg PO Q6H PRN PRN Reason: PAIN LEVEL 1-5 ASSESSMENT AND PLAN: Cervical Spinal Stenosis with Neurogenic Claudication s/p C4-C5 Discectomy/Anterior Instrumentation/Insertion Biomechanical Device Asthma - pain control - incentive spirometry - replete lytes - PO as tolerated - DVT prophylaxis - can monitor on floor
--- NOTE | 2018-09-30 15:58 | PN ---
Progress Note (short form) - Note Progress Note: SUBJECTIVE Neck pain improving. Mobilizing well. Ongoing drooping of R upper eyelid and intermittent blurring of vision post-op (now improving). Complains also of intermittent numbness/tingling of arms and legs (longstanding). No headache/ nausea/vomiting. No bladder/bowel dysfunction. Tolerating po intake. Passing gas. OBJECTIVE Low grade temp and tachycardia resolved. Last Vital Signs Temp Pulse Resp BP Pulse Ox 98.4 F 89 15 116/84 96 09/30/18 06:00 09/30/18 12:00 09/30/18 12:00 09/30/18 12:00 09/30/18 08:10 HEENT - Dressing in place on neck -dry. No pharyngeal erythema/exudate. R sided Ptosis/supraorbital puffiness. EOMI Neuro - AAO x 3. Tone/Power normal all extremities. GERARDO. Lungs - clear to auscultation. No crackles/wheeze. Heart - S1, S2, RRR Abdomen - soft, non-tender. Bowel Sounds normal. Extremities - no calf tenderness ASSESSMENT/PLAN 48 year old female with history of Asthma admitted to [facility] for elective cervical spine surgery with Dr. 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 She was admitted to the ICU post- operatively after an uneventful surgical course. Post-op she reported R upper eyelid drooping and blurry vision, as well as uncontrolled pain and some tingling of extremities. Pain and tingling currently improving. 1. 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 Mobilizing to bathroom and with PT. On discharge, for follow up [facility] [place] office Friday10/09/2018; call for appointment; . Post-op Surgery Instructions - Keep dressing clean & dry. No heavy lifting, bending or twisting. 2. R Ptosis/R supra-orbital edema and Blurring of vision - possibly mechanical as a result of positioning during surgery. CT HEad negative. 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 Ophthalmology consulted on request of Neurology. MRI/MRA Head/Neck requested. 3. Hypokalemia - repleted. PT Incentive Spirometry DVT Px - SCDs Visit type - Emergency Visit Emergency Visit: No - New Patient This patient is new to me today: No - Critical Care Critical Care patient: No - Discharge Referral Referred to [facility] No
--- NOTE | 2018-09-30 17:13 | PATH ---
Surgical Pathology Report Patient Name: JUSTIN ASH [facility]. Rec. #: [id number] /Age/Gender: 1970 (Age: 48) / F Account: [id number] Location: [facility] OPERATOR Taken: 09/28/2018 Received: 09/29/2018 Reported: 09/30/2018 Physicians: Ulises Yap M.D. Specimen(s) Received C4-C5DISC Clinical History Cervical disc disorder Final Diagnosis C4-C5, DISC, DISCECTOMY: CARTILAGINOUS TISSUE WITH DEGENERATIVE CHANGE. Electronically Signed Golden Browning M.D. Gross Description Received in formalin labeled "C4-C5 disc," is a 2.0 x 1.7 x 0.3 cm aggregate of cope fragments of fibrocartilaginous tissue. The specimen is submitted in toto in one cassette. 09/29/201809/29/2018
[2018-09-30] MEDS: DOCUSATE SODIUM 100 MG CAPSULE (FP) PO PRN (18:03)
[2018-09-30] MEDS ORDERED: traMADol HCL 50 MG TABLET PO PRN (18:29)
[2018-09-30] MEDS ORDERED: ONDANSETRON 4 MG/2 ML VIAL IVPUSH PRN (18:29)
[2018-09-30] MEDS ORDERED: oxyCODONE HCL 5 MG TABLET PO PRN ×2 (18:29)
[2018-10-01] MEDS: DOCUSATE SODIUM 100 MG CAPSULE (FP) PO PRN (05:42)
[2018-10-01] MEDS: ACETAMINOPHEN 325 MG TABLET (FP) PO SCH ×3 (05:42→23:19)
[2018-10-01 06:42] LABS: ANION GAP 7 MMOL/L (8-16); BLOOD UREA NITROGEN 6 mg/dL (7-18); CALCIUM 9.1 mg/dL (8.5-10.1); CHLORIDE 100 mmol/L (98-107); CO2 29 mmol/L (21-32); CREATININE 0.5 mg/dL (0.55-1.3); GLUCOSE,RANDOM 93 mg/dL (74-106); SODIUM 136 mmol/L (136-145)
--- NOTE | 2018-10-01 07:04 | PN ---
Physical Exam: SUBJECTIVE: Patient seen and examined. Patient denies N/V. Endorses flatus. Denies BM. Endorses ambulation to restroom today OBJECTIVE: Vital Signs Period Temp Pulse Resp BP Sys/Wright Pulse Ox Last 24 Hr 98.4 F-98.9 F 64-98 13-18 116-153/65-92 96-98 GENERAL: Awake, alert, and fully oriented, in no acute distress. HEAD: Normal with no signs of trauma. EYES: Pupils equal, round and reactive to light, extraocular movements intact, sclera anicteric, conjunctiva clear. EARS, NOSE, THROAT: Ears normal, nares patent, oropharynx clear without exudates. Moist mucous membranes. NECK: Surgical dressing in place, C/D/I LUNGS: Breath sounds equal, clear to auscultation bilaterally. No wheezes, and no crackles HEART: Regular rate and rhythm, normal S1 and S2 without murmur appreciated ABDOMEN: Soft, nontender, not distended, normoactive bowel sounds, no guarding, no rebound, no masses UPPER EXTREMITIES: 2+ pulses, warm, well-perfused. No cyanosis. No clubbing. Cap refill <2 seconds. No peripheral edema. LOWER EXTREMITIES: 2+ pulses, warm, well-perfused. No peripheral edema. NEUROLOGICAL: Cranial nerves II-XII intact. Patient with decreased sensation to light touch on RUE/RLE which patient reports was presents before surgery. Strength 5/5 BUE/BLE Active Medications Generic Name Dose Route Start Last Admin Trade Name Freq PRN Reason Stop Dose Admin Acetaminophen 650 mg 10/01/18 00:00 10/01/18 05:42 Tylenol - PO 650 mg Q6HPO KUMAR Administration Docusate Sodium 100 mg 09/30/18 12:01 10/01/18 05:42 Colace - PO 100 mg BID PRN Administration CONSTIPATION Ondansetron HCl 4 mg 09/30/18 18:29 Zofran Injection IVPUSH Q6H PRN NAUSEA AND/OR VOMITING Oxycodone HCl 5 mg 09/30/18 18:29 Roxicodone - PO Q4H PRN PAIN LEVEL 4-6 Oxycodone HCl 10 mg 09/30/18 18:29 Roxicodone - PO Q4H PRN PAIN LEVEL 7 - 10 Tramadol HCl 50 mg 09/30/18 18:29 1220/18 03:01 Ultram - PO 50 mg Q6H PRN Administration PAIN LEVEL 1-3 ASSESSMENT/PLAN: The patient is a 48F s/p C4-C5 discectomies; C4, C5 partial corpectomies; C4-C5 anterior cervical decompression and instrumented fusion on 09/28/2018. POD#3 -Plan for transfer to floor today -maintain head of bed 45-60 degrees. -Keep dressing clean & dry -B/L UE & LE NV checks Neuro Acute post-operative pain -Tylenol, Oxy 5 & 10, Tramadol PRN for pain R ptosis -Symptoms resolved -Evaluated by neruology and ophthalmology, pending MRI head and neck Pulm Continue IS for volume expansion GI Diet (Reg) Advance as tolerated K 4 from 3.3 yesterday s/p repletion, Hypokalemia resolved Heme DVT PPx- Mechanical only: MEGAN's, SCD's. ID Post-op Ancef x 2 doses completed MSK PT/OT/Rehab (PT consulted) WBAT B/L UE & LE. No heavy lifting, bending or twisting Dispo Patient no longer requires ICU level of care, plan to transfer to floor today f/u [facility] [place] office Friday10/09/2018; call for appointment;[phone]. Visit type - Emergency Visit Emergency Visit: Yes ED Registration Date: 09/28/18 Care time: The patient presented to the Emergency Department on the above date and was hospitalized for further evaluation of their emergent condition. - New Patient This patient is new to me today: No - Critical Care Critical Care patient: Yes Total Critical Care Time (in minutes): 30 Critical Care Statement: The care of this patient involved high complexity decision making to prevent further life threatening deterioration of the patient 's condition and/or to evaluate & treat vital organ system(s) failure or risk of failure.
--- NOTE | 2018-10-01 09:10 | PN ---
Progress Note (short form) - Note Progress Note: ANESTHESIOLOGY POST-OP CHECK 48F s/p ACDF C4-C5 POD #3. Pain controlled. Continued mild blurring of vision of right eye and slight droop of right upper eyelid which is of cosmetic concern to patient. Denies pain. Had sensation tingling last night of right side of body and inability to open right eye, now resolved. Vital Signs Temperature 98.2 F 10/01/18 07:47 Pulse Rate 70 10/01/18 07:47 Respiratory Rate 20 10/01/18 07:47 Blood Pressure 143/91 10/01/18 07:47 O2 Sat by Pulse Oximetry (%) 98 09/30/18 21:00 Active Medications Acetaminophen (Tylenol -) 650 mg PO Q6HPO KUMAR Last Admin: 10/01/18 05:42 Dose: 650 mg Docusate Sodium (Colace -) 100 mg PO BID PRN PRN Reason: CONSTIPATION Last Admin: 10/01/18 05:42 Dose: 100 mg Ondansetron HCl (Zofran Injection) 4 mg IVPUSH Q6H PRN PRN Reason: NAUSEA AND/OR VOMITING Oxycodone HCl (Roxicodone -) 5 mg PO Q4H PRN PRN Reason: PAIN LEVEL 4-6 Oxycodone HCl (Roxicodone -) 10 mg PO Q4H PRN PRN Reason: PAIN LEVEL 7 - 10 Tramadol HCl (Ultram -) 50 mg PO Q6H PRN PRN Reason: PAIN LEVEL 1-3 Last Admin: 10/01/18 03:01 Dose: 50 mg Gen: awake, alert, NAD Eyes: Pupils equal, reactive, ledbetter of view grossly intact Pt seen by neurologist and foreign service officer. To have MRI/MRA today. Continue care as per ICU.
--- NOTE | 2018-10-01 12:20 | PN ---
Teaching Attending Note Name of Resident: Yogesh García ATTENDING PHYSICIAN STATEMENT I saw and evaluated the patient. I reviewed the resident's note and discussed the case with the resident. I agree with the resident's findings and plan as documented. SUBJECTIVE: Patient seen and examined in the ICU. Pain relatively well controlled. Tolerating PO. Still reports right lid lag, but improving. No CP or SOB. OBJECTIVE: Intake & Output 09/28/18 09/29/18 09/30/18 10/01/18 23:59 23:59 23:59 23:59 Intake Total 2750 2890 810 120 Output Total 365 1300 Balance 2385 1590 810 120 Weight 140 lb 140 lb Last Vital Signs Temp Pulse Resp BP Pulse Ox 98.2 F 70 20 143/91 98 10/01/18 07:47 10/01/18 07:47 10/01/18 07:47 10/01/18 07:47 09/30/18 21:00 Active Medications Acetaminophen (Tylenol -) 650 mg PO Q6HPO KUMAR Last Admin: 10/01/18 05:42 Dose: 650 mg Docusate Sodium (Colace -) 100 mg PO BID PRN PRN Reason: CONSTIPATION Last Admin: 10/01/18 05:42 Dose: 100 mg Ondansetron HCl (Zofran Injection) 4 mg IVPUSH Q6H PRN PRN Reason: NAUSEA AND/OR VOMITING Oxycodone HCl (Roxicodone -) 5 mg PO Q4H PRN PRN Reason: PAIN LEVEL 4-6 Oxycodone HCl (Roxicodone -) 10 mg PO Q4H PRN PRN Reason: PAIN LEVEL 7 - 10 Tramadol HCl (Ultram -) 50 mg PO Q6H PRN PRN Reason: PAIN LEVEL 1-3 Last Admin: 10/01/18 03:01 Dose: 50 mg Gen: NAD at rest Heart: RRR Lung: decreased breath sounds at the bases Abd: soft, nontender Ext: no edema Laboratory Results - last 24 hr 10/01/18 05:30 Sodium 136 Potassium 4.0 Chloride 100 Carbon Dioxide 29 Anion Gap 7 L BUN 6 L Creatinine 0.5 L Creat Clearance w eGFR > 60 Random Glucose 93 Calcium 9.1 ASSESSMENT AND PLAN: Cervical Spinal Stenosis with Neurogenic Claudication s/p C4-C5 Discectomy/Anterior Instrumentation/Insertion Biomechanical Device Asthma (?) Lid lag - pain control - incentive spirometry - PO as tolerated - DVT prophylaxis - Follow Neuro exam: for possible MRI - can monitor on floor Dr Levine
--- NOTE | 2018-10-01 17:22 | PN ---
Progress Note (short form) - Note Progress Note: 48 year old female with a PMH significant for asthma presented to [facility] for scheduled cervical spine surgery with Dr. Yap on 09/28/18 . POD #2. She had a fall on her face one year ago and has since had neck and back pain with numbness and tingling down both arms. MRI showed large disc prolapse at C4/C5. Procedure was without complications. Now admitted to ICU for post-op management , in stable condition. 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 Hypoplastic/aplastic right A1 segment with normal flow seen in the right A2 segment through the anterior colon indicating artery. Otherwise, no focal stenosis, major artery cutoff or vascular malformation is identified within the central intracranial arterial circulation. MRA of the neck without and following intravenous contrast 2D and 3-D time of flight technique was utilized. Source and MIP images were reviewed . 13 mL of ProHance was intravenously injected The vertebral arteries appear unremarkable. The common carotid artery and its bifurcation appear unremarkable without evidence of stenosis, bilaterally. Impression: Unremarkable examination. There is no gross evidence of stenosis at the common carotid bifurcation , bilaterally. - Past Medical History ...LMP Comment: december 2017 - Alcohol/Substance Use Hx Alcohol Use: Yes (drink/day) - Smoking History Smoking history: Former smoker Have you smoked in the past 12 months: No If you are a former smoker, when did you quit?: 15 yrs ago Home Medications - Allergies Allergies/Adverse Reactions: Allergies Allergy/AdvReac Type Severity Reaction Status Date / Time No Known Allergies Allergy Verified 09/25/18 17:26 - Home Medications Home Medications: Ambulatory Orders Ibuprofen/Diphenhydramine Cit [Advil Pm Caplet] 1 - 2 each PO HS 09/25/18 Physical Exam-Neuro Vital Signs: Vital Signs Temperature 98.2 F 10/01/18 12:00 Pulse Rate 87 10/01/18 12:00 Respiratory Rate 22 H 10/01/18 12:00 Blood Pressure 136/84 10/01/18 12:00 O2 Sat by Pulse Oximetry (%) 98 09/30/18 21:00 09/29/18 05:15 - Neuro Exam Level Of Consciousness: Yes: Alert, Oriented to Person (R ptosis , r pupils asymetric miotic 1.5mm, no facial, no focal weakness ) Imaging - Results Cat Scan: Report Reviewed, Image Reviewed Problem List - Problems (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 for scheduled cervical spine surgery with Dr. Yap on 09/28/18 . POD #2. She had a fall on her face one year ago and has since had neck and back pain with numbness and tingling down both arms. MRI showed large disc prolapse at C4/C5. Procedure was without complications. Now admitted to ICU for post-op management , in stable condition. 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
--- NOTE | 2018-10-01 17:26 | PN ---
Progress Note (short form) - Note Progress Note: SUBJECTIVE Neck pain improving. Mobilizing well. Ongoing drooping of R upper eyelid and intermittent blurring of vision post-op (improving). Complains of ongoing intermittent numbness/tingling of arms and legs (longstanding). No headache/ nausea/vomiting. No bladder/bowel dysfunction. Tolerating po intake. Passing gas. OBJECTIVE Afebrile/Hemodynamically Stable. Last Vital Signs Temp Pulse Resp BP Pulse Ox 98.4 F 89 15 116/84 96 09/30/18 06:00 09/30/18 12:00 09/30/18 12:00 09/30/18 12:00 09/30/18 08:10 HEENT - Dressing in place on neck -dry. No pharyngeal erythema/exudate. R sided Ptosis/supraorbital puffiness. R pupil < L pupil. EOMI Neuro - AAO x 3. Tone/Power normal all extremities. GERARDO. Lungs - clear to auscultation. No crackles/wheeze. Heart - S1, S2, RRR Abdomen - soft, non-tender. Bowel Sounds normal. Extremities - no calf tenderness ASSESSMENT/PLAN 48 year old female with history of Asthma admitted to [facility] for elective cervical spine surgery with Dr. 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 She was admitted to the ICU post- operatively after an uneventful surgical course. Post-op she reported R upper eyelid drooping and blurry vision, as well as uncontrolled pain and some tingling of extremities. Pain and tingling currently improving. 1. 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 Mobilizing to bathroom and with PT. On discharge, for follow up [facility] [place] office Friday10/09/2018; call for appointment; . Post-op Surgery Instructions - Keep dressing clean & dry. No heavy lifting, bending or twisting. 2. 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 CT Head negative. MRI/MRA Head/Neck essentially negative for acute findings. Further management as per NeuroSx and Neurology. 3. Hypokalemia - repleted. PT Incentive Spirometry DVT Px - SCDs Visit type - Emergency Visit Emergency Visit: No - New Patient This patient is new to me today: No - Critical Care Critical Care patient: No - Discharge Referral Referred to [facility] No
[2018-10-01] MEDS ORDERED: ONDANSETRON 4 MG/2 ML VIAL IVPUSH PRN (20:37)
[2018-10-01] MEDS ORDERED: traMADol HCL 50 MG TABLET PO PRN (20:37)
[2018-10-01] MEDS ORDERED: oxyCODONE HCL 5 MG TABLET PO PRN ×2 (20:37)
[2018-10-01] MEDS ORDERED: DOCUSATE SODIUM 100 MG CAPSULE (FP) PO PRN (20:37)
[2018-10-02] MEDS: ACETAMINOPHEN 325 MG TABLET (FP) PO SCH ×3 (01:47→13:39)
[2018-10-02 13:46] VITALS: BP 119/81; PULSE 98; TEMP 98
--- NOTE | 2018-10-02 14:41 | DS ---
Physical Exam: SUBJECTIVE: Patient seen and examined OBJECTIVE: Vital Signs Period Temp Pulse Resp BP Sys/Wright Pulse Ox Last 24 Hr 97.8 F-98.8 F 65-98 18-22 115-149/75-89 98 HEENT - Dressing in place on neck -dry. No pharyngeal erythema/exudate. R sided Ptosis/supraorbital puffiness. R pupil < L pupil. EOMI Neuro - AAO x 3. Tone/Power normal all extremities. GERARDO. Lungs - clear to auscultation. No crackles/wheeze. Heart - S1, S2, RRR Abdomen - soft, non-tender. Bowel Sounds normal. Extremities - no calf tenderness Laboratory Tests 09/28/18 09/28/18 09/28/18 08:54 08:54 10:30 WBC RBC Hgb Hct MCV MCH MCHC RDW Plt Count MPV Sodium Potassium Chloride Carbon Dioxide Anion Gap BUN Creatinine Creat Clearance w eGFR Random Glucose Calcium Serum , Qual Negative Blood Type O POSITIVE O POSITIVE Antibody Screen Negative 09/29/18 09/29/18 09/30/18 05:15 05:15 09:08 WBC 7.6 RBC 3.49 L Hgb 11.9 Hct 35.7 MCV 102.5 H MCH 34.0 H MCHC 33.2 RDW 14.8 Plt Count 161 MPV 8.6 Sodium 135 L Potassium 3.3 L 3.4 L Chloride 98 Carbon Dioxide 29 Anion Gap 9 BUN 8 Creatinine 0.6 Creat Clearance w eGFR > 60 Random Glucose 123 H Calcium 8.5 Serum , Qual Blood Type Antibody Screen 10/01/18 05:30 WBC RBC Hgb Hct MCV MCH MCHC RDW Plt Count MPV Sodium 136 Potassium 4.0 Chloride 100 Carbon Dioxide 29 Anion Gap 7 L BUN 6 L Creatinine 0.5 L Creat Clearance w eGFR > 60 Random Glucose 93 Calcium 9.1 Serum , Qual Blood Type Antibody Screen Date of Admission:09/28/18 Date of Discharge: 10/02/18 Minutes to complete discharge: 45 Discharge Summary Reason For Visit: CERVICAL DISC DISORDER Current Active Problems Cervical disc disorder at C4-C5 level with myelopathy (Acute) Grace syndrome (Acute) Grace syndrome (Acute) Hospital Course: 48 year old female with history of Asthma admitted to [facility] for elective cervical spine surgery with Dr. 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 She was admitted to the ICU post- operatively after an uneventful surgical course. Post-op she reported R upper eyelid drooping and blurry vision, as well as uncontrolled pain and some tingling of extremities. Pain and tingling currently much improved. She was seen by Neurology and Ophthalmology for post-op Grace's Syndrome, no acute intervention initiated, rather for out-patient follow up recommended. 1. 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 Mobilizing well. On discharge, for follow up [facility] [place] office Friday10/09/2018; call for appointment; . Post-op Surgery Instructions - Keep dressing clean & dry. No heavy lifting, bending or twisting. 2. 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 CT Head negative. MRI/MRA Head/Neck essentially negative for acute findings. No arterial dissection on imaging. Further management as per NeuroSx and Neurology and Ophthalmology with which she will follow as an out-patient. She is medically and neurologically stable, optimized for discharge. Condition: Good - Instructions Diet, Activity, Other Instructions: [facility] office Friday10/09/2018; call for appointment; . Post-op Surgery Instructions - Keep dressing clean & dry. No heavy lifting, bending or twisting. FOLLOW WITH OPHTHALMOLOGY DR STEVO SHIPMAN Referrals: Sherif Avendano [Non Staff, Medical] - 1 Week [facility] DO [Staff Physician] - 1 Week Rolan Yap MD [Staff Physician] - 1 Week Disposition: HOME - Home Medications Comprehensive Discharge Medication List: Ambulatory Orders Acetaminophen [Tylenol .Regular Strength -] 650 mg PO Q6HPO PRN tablet traMADol HCL [Ultram -] 50 mg PO Q6H PRN tablet MDD 200mg 10/02/18 This patient is new to me today: No Emergency Visit: No Critical Care patient: No - Discharge Referral Referred to [facility] No
== END 2018-10-02 16:34 | disposition home or self-care (01) | DRG 472 ==
LOC: JASUSAT 08:39 → EDSTATUS 11:30 → JICU 15:37 → J7W 10-01 20:29
PROVIDERS: ADMIT Orthopaedic Surgery Adult Reconstructive Orthopaedic Surgery
PROC: 0RB30ZZ Excision of Cervical Vertebral Disc, Open Approach (ICD-10-PCS; 2018-09-28)
PROC: 00NW0ZZ Release Cervical Spinal Cord, Open Approach (ICD-10-PCS; 2018-09-28)
PROC: 4A1004G Monitoring of Central Nervous Electrical Activity, Intraoperative, Open Approach (ICD-10-PCS; 2018-09-28)
PROC: B01BZZZ Fluoroscopy of Spinal Cord (ICD-10-PCS; 2018-09-28)
PROC: 0RG10A0 Fusion of Cervical Vertebral Joint with Interbody Fusion Device, Anterior Approach, Anterior Column, Open Approach (ICD-10-PCS; principal; 2018-09-28 10:45)
DX: M50.021 Cervical disc disorder at C4-C5 level with myelopathy (principal); M96.89 Other intraoperative and postprocedural complications and disorders of the musculoskeletal system; M50.121 Cervical disc disorder at C4-C5 level with radiculopathy; J45.909 Unspecified asthma, uncomplicated; M48.02 Spinal stenosis, cervical region; G89.18 Other acute postprocedural pain; H53.8 Other visual disturbances; H02.401 Unspecified ptosis of right eyelid; E87.6 Hypokalemia; G90.2 Horner's syndrome; Y83.8 Other surgical procedures as the cause of abnormal reaction of the patient, or of later complication, without mention of misadventure at the time of the procedure
CPT/HCPCS: 36415; 70450-TC; 70544-TC; 70549-TC; 70551-TC; 76000-TC-FY; 80048; 84132; 84703; 85027; 86850; 86900; 86901; 88304-TC; 97116-GP; 97161-GP; J0131; J1644